=== PATIENT | female | born 1965 | race Caucasian/White ===

== ENCOUNTER 2017-12-24 14:20 | Emergency (ER) | payer BC ==
[~2017-12-24] VITALS: Ht 157.5 cm; Wt 90.7 kg
[~2017-12-24 14:20] MED LIST: FENOFIBRATE48 MG PO; FLUOXETINE HCL40 MG PO; HYDROCODON-ACE1 EAC7 PO; ZOFRAN ODT4 MG PO
[2017-12-24] MEDS ORDERED: FIORICET 50-301 EAC1 PO (15:37)
[2017-12-24] MEDS ORDERED: REGLAN10 MG PO (15:37)
[2017-12-24 15:38] LABS: HEMATOCRIT 43.4 % (36.0-46.0); HEMOGLOBIN 15.2 G/DL (11.9-15.5); MCH 32.5 PG (29.0-34.0); MCV 92.7 FL (83-99); PLATELET COUNT 256 K/uL (156-360); RBC DIS.WIDTH-CV 12.6 % (11.8-14.6); RBC DIS.WIDTH-SD 43.2 % (39-53); RED BLOOD COUNT 4.68 M/uL (3.80-5.20); WHITE BLOOD COUNT 7.8 K/uL (4.1-10.2)
[2017-12-24 15:46] LABS: CHLORIDE 106 mEq/L (99-109); POTASSIUM 4.2 mEq/L (3.7-5.4); SODIUM 141 mEq/L (136-147)
[2017-12-24 15:48] LABS: GLUCOSE 89 mg/dL (70-99)
[2017-12-24 15:52] LABS: CREATININE 0.7 mg/dL (0.6-1.3); GFR ESTIMATE (CALCULATED) > 59 mL/min/
[2017-12-24 15:53] LABS: UREA NITROGEN (BUN) 11 mg/dL (9-23)
[2017-12-24] MEDS ORDERED: LEVAQUIN500 MG PO (15:55)
[2017-12-24 16:08] VITALS: BP 162/80
== END 2017-12-24 16:09 | disposition home or self-care (01) ==
LOC: EME 14:20
PROVIDERS: Physician Assistant
DX: R51 Headache (principal); H57.11 Ocular pain, right eye; H53.8 Other visual disturbances; E78.5 Hyperlipidemia, unspecified; F17.200 Nicotine dependence, unspecified, uncomplicated
CPT/HCPCS: 70450; 80048; 85027; 99281; 99284; J1100